=== PATIENT | male | born 1950 | race Caucasian/White ===

== ENCOUNTER → 2016-08-11 | Outpatient (CLI) | payer OTHER, MEDICARE ==
[~2016-08-11] MED LIST: ASPIR 8181 MG PO; BENAZEPRIL HCL10 MG PO; BUTALB-APAP-CA1 EACH PO; FISH OIL 1,001000 M2 PO; FLEXERIL PO; IMITREX 25 MG T25 MG PO; IMITREX 50 MG T50 MG PO; LOTENSIN20 MG PO; MOBIC15 MG PO; NORTRIPTYLINE H25 M3 PO; NORTRIPTYLINE H50 M3 PO; REPATHA SU140 MG/1 M SQ; SAW PALMETTO160 MG PO; TOPAMAX 25 MG T25 M1 PO; TOPROL XL25 MG PO; ULTRACET TABLET1 TAB PO; ZANAFLEX4 MG PO
== END ==
LOC: RAD 09:13
DX: R63.4 Abnormal weight loss (principal)

== ENCOUNTER → 2017-01-19 | Outpatient (CLI) | payer OTHER, MEDICARE | LOC: CAT 08:59 | DX: R05 Cough (principal) ==

== ENCOUNTER → 2017-01-20 | Outpatient (CLI) | payer OTHER, MEDICARE | LOC: RAD 08:28 | DX: K44.9 Diaphragmatic hernia without obstruction or gangrene (principal); R13.10 Dysphagia, unspecified ==

== ENCOUNTER → 2017-04-02 | Outpatient (CLI) | payer OTHER, MEDICARE ==
[~2017-04-02] VITALS: Ht 177.8 cm; Wt 99.8 kg
[~2017-04-02] MED LIST changes: +BYSTOLIC 5 MG5 M1 PO; +EPITOL200 MG PO; +HYDREA 500 MG500 M1 PO; +LOSARTAN POTAS100 MG PO; +MAGOX 400400 MG PO; +PROTONIX40 M1 PO; +SAW PALMETTO 1160 MG PO; +VITAMIN D35000 UNIT PO
--- NOTE | ~2017-04-02 | P ---
[facility] [place] [address] PROCEDURE REPORT Name: KEIRYSHAHID Margarita Room #: REG [facility]#: [id number] Admission: 04/02/17 Attend Phys: Shane Purcell MD Discharge: Date of : 46 Report #: [id number] THIS REPORT FOR: //name// CC: Shane Mark MD BRIEF HISTORY: The patient is a 66-year-old male with a history of chronic cough symptoms. He denies typical reflux symptoms. He also has had intermittent dysphagia for both solids and liquids. He was recently started on pantoprazole. PREOPERATIVE DIAGNOSES: Chronic cough and dysphagia, possible gastroesophageal reflux disease. POSTOPERATIVE DIAGNOSES: 1. Mild diffuse erythematous gastritis. 2. Dysphagia. MEDICATIONS: Deep sedation with propofol per anesthesia. SPECIMEN: Biopsies of antrum and body, rule out H. pylori. ESTIMATED BLOOD LOSS: 3 mL. PROCEDURE: EGD with biopsy and Aponte dilation. FINDINGS: Prior to propofol sedation, the procedure of upper endoscopy and dilation were reviewed with the patient as well potential risks, benefits, and complications. He indicates he understands and desires to proceed. With the patient in left decubitus position, Fluid-1i video endoscope was inserted in the cervical esophagus under direct vision without difficulty. Examination of this organ through its entire length revealed normal esophageal mucosa down the squamocolumnar junction. The squamocolumnar junction was inspected and noted to be unremarkable. A hiatus hernia was not seen. No strictures or masses were seen. Reflux esophagitis was not seen. The mucosa was normal. The scope was advanced in the stomach, was examined on end view as well as retroflexed views. There was erythema in the antrum. He does take Meloxicam. No ulcers or erosions were seen. use of nonsteroidals. Multiple biopsies were obtained to evaluate for H. pylori. Upon retroflexion, no mass lesions were seen. No retained solids or liquids were seen within the stomach. The pylorus, duodenal bulb, and postbulbar sweep were all inspected and noted to be unremarkable. At that point, the scope was slowly withdrawn and careful circumferential views confirmed the above finding. Biopsies were obtained of the gastritis. The patient tolerated the procedure well. [address] [address] PROCEDURE REPORT Name: SHAHID RICCI Room #: REG [facility] Geno#: [id number] Admission: 04/02/17 Attend Phys: Shane Purcell MD Discharge: Date of : 46 Report #: [id number] CONDITION OF THE PATIENT UPON DISCHARGE: Following procedure, the patient drowsy and prepared for colonoscopy. INSTRUCTIONS TO THE PATIENT AND FAMILY AT THE TIME OF DISCHARGE: We will follow up on biopsies obtained today. I do not see evidence of reflux disease. I do not see evidence of Hidalgo mucosa. However, it is possible reflux may be a factor and we will have him take pantoprazole 40 mg daily for at least 90 days. Thereafter, he may use as needed for recurrent symptoms of cough for reflux disease. He should return on an as needed basis for dilation of esophagus. He has recurrent symptoms of dysphagia. We will proceed with colonoscopy at this time. <ELECTRONICALLY SIGNED> By: Shane Purcell MD 04/04/17 1339 [id number] 1300 Shane Purcell MD /nt
--- NOTE | ~2017-04-02 | P ---
[facility] [place] [address] PROCEDURE REPORT Name: SHAHID RICCI Room #: REG [facility]#: [id number] Admission: 04/02/17 Attend Phys: Shane Purcell MD Discharge: Date of : 46 Report #: [id number] THIS REPORT FOR: //name// CC: Shane Cabrera MD BRIEF HISTORY: The patient is a 66-year-old male with history of colon polyps for high risk screening colonoscopy. PREOPERATIVE DIAGNOSIS: High risk screening colonoscopy due to history of colon polyps. POSTOPERATIVE DIAGNOSES: 1. 6-7 mm sessile polyp, proximal ascending colon. 2. Moderately severe diverticulosis coli, primarily left colon. 3. Internal hemorrhoids and hemorrhoidal tag. 4. Diffusely dilated colon consistent with chronic constipation. MEDICATIONS: Deep sedation with propofol per anesthesia. SPECIMEN: Polyp from ascending colon. ESTIMATED BLOOD LOSS: 3 mL. PROCEDURE: Colonoscopy to cecum and terminal ileum with snare polypectomy. FINDINGS: Prior to propofol sedation, the procedure of colonoscopy was discussed with the patient as well as potential risks, benefits, and complications. He indicates he understands and desires to proceed. With the patient in left lateral decubitus position, digital examination was completed, which revealed no abnormalities. Subsequently, the Standardized Safety video colonoscope was introduced in the rectum and advanced under direct vision to the cecum. As we advanced the scope, we ran into multiple pools of liquidy stools and as we advanced the scope, we suctioned copious amounts of liquid stool from the colon. A large quantity was removed, but every last bit could not be removed. However, we were able to advance the scope into the cecum, identified the ileocecal valve and the appendiceal orifice. I was also able to advance the scope across the ileocecal valve and visualized the distal segment of terminal ileum, which was inspected and noted to be unremarkable. At that point, the scope was slowly withdrawn and careful circumferential views were obtained. As we withdrew the scope, we continued to wash and aspirated liquidy stool. Much of the material could be removed; however, not all could be removed and the small lesions could have been overlooked. In the proximal ascending colon, a 6-7 mm sessile polyp was seen and removed by cold snare polypectomy and recovered. The scope was further withdrawn and no additional neoplastic lesions [address] [address] PROCEDURE REPORT Name: SHAHID RICCI Room #: REG [facility]#: [id number] Admission: 04/02/17 Attend Phys: Shane Purcell MD Discharge: Date of : 46 Report #: [id number] were seen. He had a diffusely dilated colon consistent with chronic constipation. No obstructing lesions were seen. In the sigmoid colon, there was moderately severe diverticular disease without endoscopic evidence of diverticulitis. Scope was withdrawn in the rectum. No abnormalities were seen until retroflexion, small hemorrhoids were seen as well as hemorrhoidal anal tag. The scope was withdrawn. The patient tolerated the procedure well. CONDITION OF THE PATIENT UPON DISCHARGE: Following procedure, the patient drowsy, aroused, conversant and will be discharged home when fully ambulatory. INSTRUCTIONS TO THE PATIENT AND FAMILY AT THE TIME OF DISCHARGE: The patient has a history of polyps and small polyp removed today. We will follow up on path. However, due to the limitations of the prep, we will have him return in 2 years for another colonoscopy as the small lesion could have been overlooked today. In addition, he had difficulty with the prep and actually took 2 preps this week and still had limitations of prep. We will have him start Linzess 145 mcg daily. He may use MiraLax as well. If he continues to have difficulty, he should return to the office for followup. Last colonoscopy was in January 2013. Withdrawal time from the cecum was 13 minutes and 13 seconds. <ELECTRONICALLY SIGNED> By: Shane Purcell MD 04/04/17 1339 [id number] Shane Purcell MD /nt
--- NOTE | ~2017-04-02 | S ---
[facility] [address] [place] [address] SURGICAL PATH RPT PROCEDURE Name: SHAHID RICCI Room #: REG [facility]#: [id number] Admission: 04/02/17 Date of : 46 Discharge: Report #: [id number] Path Case #: [id number] PATHOLOGY REPORT DRAFT COLLECTION DATE: 04/02/2017 RECEIVED DATE: 04/02/2017 SPECIMEN(S) RECEIVED: A.Gastritis B.Proximal ascending colon polyp
== END | disposition home or self-care (01) ==
LOC: GI 06:28
DX: Z09 Encounter for follow-up examination after completed treatment for conditions other than malignant neoplasm (principal); K63.5 Polyp of colon; K57.30 Diverticulosis of large intestine without perforation or abscess without bleeding; K64.8 Other hemorrhoids; K64.4 Residual hemorrhoidal skin tags; K59.8 Other specified functional intestinal disorders; K29.60 Other gastritis without bleeding; K59.09 Other constipation; R05 Cough; R13.19 Other dysphagia; I10 Essential (primary) hypertension; I25.2 Old myocardial infarction; K21.9 Gastro-esophageal reflux disease without esophagitis; Z85.828 Personal history of other malignant neoplasm of skin; Z98.890 Other specified postprocedural states; Z79.899 Other long term (current) drug therapy; Z96.641 Presence of right artificial hip joint; Z79.82 Long term (current) use of aspirin; Z88.1 Allergy status to other antibiotic agents

== ENCOUNTER → 2019-05-23 | Outpatient (CLI) | payer OTHER, MEDICARE | LOC: SJCVCIMAG 09:14 | DX: I65.23 Occlusion and stenosis of bilateral carotid arteries (principal); I25.10 Atherosclerotic heart disease of native coronary artery without angina pectoris; E78.00 Pure hypercholesterolemia, unspecified; I10 Essential (primary) hypertension; E11.9 Type 2 diabetes mellitus without complications; G47.33 Obstructive sleep apnea (adult) (pediatric); Z99.89 Dependence on other enabling machines and devices ==

== ENCOUNTER → 2019-06-28 | Outpatient (CLI) | payer OTHER, MEDICARE | LOC: SJCVCIMAG 08:47 | DX: I45.10 Unspecified right bundle-branch block (principal); I25.10 Atherosclerotic heart disease of native coronary artery without angina pectoris; I10 Essential (primary) hypertension; E78.5 Hyperlipidemia, unspecified ==

== ENCOUNTER → 2020-02-21 | Outpatient (CLI) | payer OTHER, MEDICARE | LOC: SJCVCIMAG 09:13 | PROVIDERS: ATTEND Internal Medicine Cardiovascular Disease | DX: I65.23 Occlusion and stenosis of bilateral carotid arteries (principal); R94.31 Abnormal electrocardiogram [ECG] [EKG]; I45.2 Bifascicular block; I25.10 Atherosclerotic heart disease of native coronary artery without angina pectoris; I10 Essential (primary) hypertension; E78.00 Pure hypercholesterolemia, unspecified; E11.9 Type 2 diabetes mellitus without complications; R51.9 Headache, unspecified; C61 Malignant neoplasm of prostate; M79.7 Fibromyalgia; I25.2 Old myocardial infarction; Z79.899 Other long term (current) drug therapy ==

== ENCOUNTER → 2020-08-21 | Outpatient (CLI) | payer OTHER, MEDICARE | LOC: SJCVCIMAG 09:14 | PROVIDERS: ATTEND Internal Medicine Cardiovascular Disease | DX: R94.31 Abnormal electrocardiogram [ECG] [EKG] (principal); I45.2 Bifascicular block; I65.23 Occlusion and stenosis of bilateral carotid arteries; E78.00 Pure hypercholesterolemia, unspecified; I77.9 Disorder of arteries and arterioles, unspecified; E11.9 Type 2 diabetes mellitus without complications; G47.33 Obstructive sleep apnea (adult) (pediatric); I25.10 Atherosclerotic heart disease of native coronary artery without angina pectoris; F32.9 Major depressive disorder, single episode, unspecified; I10 Essential (primary) hypertension; I25.2 Old myocardial infarction; E55.9 Vitamin D deficiency, unspecified; Z79.82 Long term (current) use of aspirin; Z79.899 Other long term (current) drug therapy; Z88.5 Allergy status to narcotic agent; Z88.8 Allergy status to other drugs, medicaments and biological substances; Z88.1 Allergy status to other antibiotic agents ==

== ENCOUNTER → 2020-09-10 | Outpatient (CLI) | payer OTHER | LOC: CAT 09:16 | PROVIDERS: ATTEND Internal Medicine Cardiovascular Disease | DX: Z13.6 Encounter for screening for cardiovascular disorders (principal) ==

== ENCOUNTER → 2020-09-20 | Outpatient (CLI) | payer OTHER, MEDICARE | LOC: SJCVC 09:24 | PROVIDERS: ATTEND Internal Medicine Cardiovascular Disease | DX: E78.00 Pure hypercholesterolemia, unspecified (principal); K21.9 Gastro-esophageal reflux disease without esophagitis; I25.10 Atherosclerotic heart disease of native coronary artery without angina pectoris; E11.9 Type 2 diabetes mellitus without complications; I10 Essential (primary) hypertension; G89.29 Other chronic pain; Z68.33 Body mass index [BMI] 33.0-33.9, adult; E66.9 Obesity, unspecified; Z79.82 Long term (current) use of aspirin; Z79.899 Other long term (current) drug therapy ==

== ENCOUNTER → 2020-10-07 | Outpatient (CLI) | payer OTHER, MEDICARE | LOC: SJCVCIMAG 11:49 | PROVIDERS: ATTEND Internal Medicine Cardiovascular Disease | DX: Z01.810 Encounter for preprocedural cardiovascular examination (principal); I49.3 Ventricular premature depolarization; I25.10 Atherosclerotic heart disease of native coronary artery without angina pectoris; R06.00 Dyspnea, unspecified; R53.83 Other fatigue ==

== ENCOUNTER → 2021-04-09 | Outpatient (CLI) | payer OTHER, MEDICARE | LOC: SJCVCIMAG 07:18 | PROVIDERS: ATTEND Internal Medicine Cardiovascular Disease | DX: I65.23 Occlusion and stenosis of bilateral carotid arteries (principal); I45.10 Unspecified right bundle-branch block; R94.31 Abnormal electrocardiogram [ECG] [EKG]; I25.10 Atherosclerotic heart disease of native coronary artery without angina pectoris; I10 Essential (primary) hypertension; E78.00 Pure hypercholesterolemia, unspecified; I77.9 Disorder of arteries and arterioles, unspecified; E11.9 Type 2 diabetes mellitus without complications; F32.A Depression, unspecified; G47.33 Obstructive sleep apnea (adult) (pediatric); D75.1 Secondary polycythemia; M79.10 Myalgia, unspecified site; C43.9 Malignant melanoma of skin, unspecified; Z79.82 Long term (current) use of aspirin; Z79.899 Other long term (current) drug therapy; Z88.5 Allergy status to narcotic agent; Z88.8 Allergy status to other drugs, medicaments and biological substances ==